=== PATIENT | male | born 1945 | race Caucasian/White ===

== ENCOUNTER → 2016-06-25 | Outpatient (CLI) | payer MEDICARE, BC, OTHER ==
[~2016-06-25] VITALS: Ht 167.6 cm; Wt 81.6 kg
[~2016-06-25] MED LIST: ASPI1TAB PO; ICAPCAP PO; META48.54 PO; NS 1,000 ML IV SCH; PROPOFOL 200 MG/20 ML VIAL As Ordered ONE
--- NOTE | 2016-06-25 12:57 | ROOR ---
Patient Name: Amari Price Procedure Date: 06/25/2016 12:30 PM Date of : 1945 Age: 70 Room: [facility] Gender: Male Note Status: Finalized Procedure: Colonoscopy to Cecum + Cold Snare Polypectomy + Biopsy Polypectomy Indications: High risk colon cancer surveillance: Personal history of colonic polyps, Last colonoscopy: 2012 Providers: Rj Vázquez MD Referring MD: RUBÉN ALCALA JR, MD Requesting Provider: Medicines: Monitored Anesthesia Care Complications: No immediate complications. Procedure: Pre-Anesthesia Assessment: - The heart rate, respiratory rate, oxygen saturations, blood pressure, adequacy of pulmonary ventilation, and response to care were monitored throughout the procedure. The Colonoscope was introduced through the anus and advanced to the cecum, identified by appendiceal orifice and ileocecal valve. The colonoscopy was performed without difficulty. The patient tolerated the procedure well. The quality of the bowel preparation was excellent. Findings: The perianal and digital rectal examinations were normal. Non-bleeding internal hemorrhoids were found during retroflexion. The hemorrhoids were small and Grade I (internal hemorrhoids that do not prolapse). A small polyp was found at 45 cm proximal to the anus. The polyp was sessile. The polyp was removed with a cold snare. Resection and retrieval were complete. A small polyp was found in the mid ascending colon. The polyp was sessile. The polyp was removed with a cold snare. Resection and retrieval were complete. A small polyp was found at 50 cm proximal to the anus. The polyp was sessile. The polyp was removed with a cold biopsy forceps. Resection and retrieval were complete. The exam was otherwise without abnormality on direct and retroflexion views. Impression: - Non-bleeding internal hemorrhoids. - One small polyp at 45 cm proximal to the anus, removed with a cold snare. Resected and retrieved. - One small polyp in the mid ascending colon, removed with a cold snare. Resected and retrieved. - One small polyp at 50 cm proximal to the anus, removed with a cold biopsy forceps. Resected and retrieved. - The examination was otherwise normal on direct and retroflexion views. - The exam was otherwise normal to the cecum. Recommendation: - Patient has a contact number available for emergencies. The signs and symptoms of potential delayed complications were discussed with the patient. Return to normal activities tomorrow. Written discharge instructions were provided to the patient. - Discharge patient to home. - High fiber diet. - Continue present medications. - Await pathology results. - Telephone GI clinic for pathology results in 1 week. - Repeat colonoscopy in 5 years for surveillance based on pathology results. - Return to referring physician. - The findings and recommendations were discussed with the patient's family. Rj Vázquez MD Rj Vázquez MD 06/25/2016 12:57:19 PM This report has been signed electronically. Number of Addenda: 0 Note Initiated On: 06/25/2016 12:30 PM Estimated Blood Loss: Estimated blood loss: none.
[2016-06-25 13:15] VITALS: BP 123/72
== END | disposition home or self-care (01) ==
LOC: M OPP 11:53
PROVIDERS: ATTEND Internal Medicine Gastroenterology
DX: Z12.11 Encounter for screening for malignant neoplasm of colon (principal); D12.5 Benign neoplasm of sigmoid colon; D12.2 Benign neoplasm of ascending colon; K64.0 First degree hemorrhoids; Z86.010 Personal history of colon polyps; R73.09 Other abnormal glucose; R06.83 Snoring; Z85.46 Personal history of malignant neoplasm of prostate; Z92.3 Personal history of irradiation; F17.220 Nicotine dependence, chewing tobacco, uncomplicated; Z79.82 Long term (current) use of aspirin; Z79.899 Other long term (current) drug therapy; Z80.8 Family history of malignant neoplasm of other organs or systems

== ENCOUNTER → 2017-07-31 | Outpatient (REF) | payer MEDICARE, OTHER ==
[2017-07-31 13:38] LABS: TESTOSTERONE 472 NG/DL (241-827)
== END ==
LOC: M LAB REF 12:22
DX: C61 Malignant neoplasm of prostate (principal)
CPT/HCPCS: 84403

== ENCOUNTER → 2019-09-28 | Outpatient (CLI) | payer MEDICARE, BC, OTHER ==
[~2019-09-28] MED LIST changes: -ASPI1TAB PO; +ASPI81TA26 PO; -NS 1,000 ML IV SCH; -PROPOFOL 200 MG/20 ML VIAL As Ordered ONE
== END ==
LOC: M LABSMTC 09:39
PROVIDERS: ATTEND Orthopaedic Surgery Hand Surgery
DX: Z03.818 Encounter for observation for suspected exposure to other biological agents ruled out (principal); Z11.59 Encounter for screening for other viral diseases

== ENCOUNTER → 2019-10-01 | Outpatient (REF) | payer MEDICARE, OTHER | LOC: M LAB REF 16:53 | PROVIDERS: ATTEND Orthopaedic Surgery Hand Surgery | DX: D36.7 Benign neoplasm of other specified sites (principal) ==

== ENCOUNTER → 2020-06-01 | Outpatient (CLI) | payer MEDICARE, OTHER ==
--- NOTE | 2020-06-01 10:20 | REP ---
INDICATION: STRAIN COMPARISON: None. TECHNIQUE: AP, lateral, bilateral oblique, and coned-down views of the lumbar spine. FINDINGS: Alignment and lordosis maintained. Vertebral bodies are intact and there is no evidence for acute fracture/compression injury or acute subluxation. Generalized age-related changes include minimal endplate sclerosis along with facet arthropathy and disc space narrowing primarily involving L4-5 and L5-S1 and to a lesser extent L3-4. IMPRESSION: Mild generalized age-related spondylosis. <Electronically signed by Mo Matias > 06/01/20 [id number]
== END ==
LOC: M WUC 09:50
PROVIDERS: ATTEND Physician Assistant
DX: M47.819 Spondylosis without myelopathy or radiculopathy, site unspecified (principal)

== ENCOUNTER → 2020-08-03 | Outpatient (CLI) | payer MEDICARE, BC, OTHER ==
--- NOTE | 2020-08-04 08:24 | REP ---
INDICATION: SPINAL STENOSIS, DD L REGION. COMPARISON: None. TECHNIQUE: Sagittal T1, T2, STIR, axial T1 and T2 weighted images obtained. Post contrast T1 images obtained. FINDINGS: There is vmqn-ki-nnmupmss multilevel degenerative disc disease with loss of disc height and disc desiccation seen diffusely throughout the lumbar spine. Vertebral heights are overall preserved. There is a mild anterolisthesis of L3 over L4. On the sagittal T2 weighted images, there is a global disc bulge that narrows the central canal at the L3-4 level. Conus ends normally at L 1 level. On the review of axial images, At L1-2 is a global disc bulge and a broad-based left paracentral disc protrusion with qjuv-qm-rqdzqxcj canal stenosis and no significant canal stenosis. At L2-3 global disc bulge without significant canal or foraminal narrowing At L3-4 global disc bulge with ligamentum flavum infolding with moderate canal stenosis and btwm-oq-xnfsbuym bilateral foraminal narrowing, appears greater on the left. At L4-5 global disc bulge with qftg-ao-zoqqglom canal stenosis and tfiv-dt-gwnqhpbe bilateral foraminal narrowing slightly greater on the right. At L5-S1 mild canal narrowing and mild bilateral foraminal narrowing. To Following contrast, no definite abnormal enhancement. IMPRESSION: 1. Ttlh-wa-kgdeibhb multilevel degenerative disc disease with slight anterolisthesis of L3 over L4. 2. At L3-4 listhesis and disc bulge contribute to moderate canal stenosis. 3. Multilevel foraminal narrowing, hbaz-sx-ulrfuqtd as described. <Electronically signed by Jama Ivan > 08/04/20 [id number]
== END ==
LOC: M PLARAD 14:49
PROVIDERS: ATTEND Physician Assistant
DX: M48.061 Spinal stenosis, lumbar region without neurogenic claudication (principal); M51.36 Other intervertebral disc degeneration, lumbar region; M51.26 Other intervertebral disc displacement, lumbar region

== ENCOUNTER → 2020-08-31 | Outpatient (CLI) | payer MEDICARE, BC, OTHER ==
[~2020-08-31] MED LIST changes: +CALCCAP4 PO; +D31000TA2 PO; +METH4TAB8; +PRESCAP PO; +ROSU20TA5; +[UNRECOGNIZED DRUG - CODE] PO
== END ==
LOC: M LABSMTC 11:49
PROVIDERS: ATTEND Anesthesiology
DX: Z01.812 Encounter for preprocedural laboratory examination (principal); Z20.822 Contact with and (suspected) exposure to COVID-19

== ENCOUNTER 2020-09-05 11:59 | Day surgery (SDC) | payer MEDICARE, BC, OTHER ==
[~2020-09-05] VITALS: Ht 170.2 cm; Wt 81.2 kg
[2020-09-05] MEDS ORDERED: propofoL 200 MG/20 ML VIAL As Ordered ONE ×2 (12:47→12:53)
[2020-09-05] MEDS ORDERED: NS 1,000 ML IV ONE (13:00)
--- NOTE | 2020-09-05 13:05 | ROOR ---
Patient Name: Amari Price Procedure Date: 09/05/2020 12:44 PM Date of : 1945 Age: 75 Room: [facility] Gender: Male Note Status: Finalized Procedure: Total Colonoscopy to Cecum + ileoscopy + Bx Indications: High risk colon cancer surveillance: Personal history of colonic polyps, Last colonoscopy: 2016 Providers: Rj Vázquez MD Referring MD: RUBÉN ALCALA JR, MD Requesting Provider: Medicines: Monitored Anesthesia Care Complications: No immediate complications. Procedure: Pre-Anesthesia Assessment: - The heart rate, respiratory rate, oxygen saturations, blood pressure, adequacy of pulmonary ventilation, and response to care were monitored throughout the procedure. The Colonoscope was introduced through the anus and advanced to the cecum, identified by appendiceal orifice and ileocecal valve. The colonoscopy was performed without difficulty. The patient tolerated the procedure well. The quality of the bowel preparation was excellent. Findings: The perianal and digital rectal examinations were normal. Non-bleeding internal hemorrhoids were found during retroflexion. The hemorrhoids were small and Grade I (internal hemorrhoids that do not prolapse). Scattered small-mouthed diverticula were found in the recto-sigmoid colon, sigmoid colon and descending colon. The terminal ileum appeared normal. A small polyp was found in the transverse colon. The polyp was sessile. The polyp was removed with a jumbo cold forceps. Resection and retrieval were complete. The exam was otherwise without abnormality on direct and retroflexion views. Impression: - Non-bleeding internal hemorrhoids. - Diverticulosis in the recto-sigmoid colon, in the sigmoid colon and in the descending colon. - The examined portion of the ileum was normal. - One small polyp in the transverse colon, removed with a jumbo cold forceps. Resected and retrieved. - The examination was otherwise normal on direct and retroflexion views. - The exam was otherwise normal to the cecum. Recommendation: - Patient has a contact number available for emergencies. The signs and symptoms of potential delayed complications were discussed with the patient. Return to normal activities tomorrow. Written discharge instructions were provided to the patient. - High fiber diet. - Discharge patient to home. - Continue present medications. - Await pathology results. - Telephone GI clinic for pathology results in 1 week. - Repeat colonoscopy is not recommended due to current age (66 years or older) for surveillance. - Return to referring physician. - The findings and recommendations were discussed with the patient's family. Procedure Code(s): --- Professional --- 33144, Colonoscopy, flexible; with biopsy, single or multiple Diagnosis Code(s): --- Professional --- Z86.010, Personal history of colonic polyps K64.0, First degree hemorrhoids K63.5, Polyp of colon K57.30, Diverticulosis of large intestine without perforation or abscess without bleeding CPT copyright 2019 [employer]. All rights reserved. The codes documented in this report are preliminary and upon relief mate review may be revised to meet current compliance requirements. Rj Vázquez MD Rj Vázquez MD 09/05/2020 1:04:49 PM Electronically signed by Rj Vázquez MD Number of Addenda: 0 Note Initiated On: 09/05/2020 12:44 PM Estimated Blood Loss: Estimated blood loss: none.
[2020-09-05 13:20] VITALS: BP 133/75
== END 2020-09-05 13:30 | disposition home or self-care (01) ==
LOC: M OPP 11:59
PROVIDERS: ATTEND Internal Medicine Gastroenterology
DX: Z12.11 Encounter for screening for malignant neoplasm of colon (principal); Z86.010 Personal history of colon polyps; D12.3 Benign neoplasm of transverse colon; K57.30 Diverticulosis of large intestine without perforation or abscess without bleeding; K64.0 First degree hemorrhoids; Z79.899 Other long term (current) drug therapy; Z85.46 Personal history of malignant neoplasm of prostate; Z92.3 Personal history of irradiation

== ENCOUNTER → 2021-02-06 | Outpatient (REF) | payer MEDICARE, BC, OTHER | LOC: M LAB REF 16:20 | PROVIDERS: ATTEND Internal Medicine | DX: C61 Malignant neoplasm of prostate (principal) ==

== ENCOUNTER → 2021-05-01 | Outpatient (REF) | payer MEDICARE, BC, OTHER | LOC: M LAB REF 12:48 | PROVIDERS: ATTEND Internal Medicine | DX: C61 Malignant neoplasm of prostate (principal) ==

== ENCOUNTER → 2021-07-31 | Outpatient (REF) | payer MEDICARE, OTHER, BC ==
[~2021-07-31] MED LIST changes: -D31000TA2 PO; +VITA100093 PO
== END ==
LOC: M LAB REF 16:08
PROVIDERS: ATTEND Internal Medicine
DX: C61 Malignant neoplasm of prostate (principal)

== ENCOUNTER → 2021-10-02 | Outpatient (REF) | payer MEDICARE, OTHER, BC | LOC: M LAB REF 16:18 | PROVIDERS: ATTEND Internal Medicine | DX: C61 Malignant neoplasm of prostate (principal) ==

== ENCOUNTER 2021-12-12 10:25 | Emergency (ER) | payer MEDICARE, OTHER, BC ==
[~2021-12-12] VITALS: Ht 165.1 cm; Wt 68.2 kg
[2021-12-12] MEDS ORDERED: METF500T13 (10:35)
[2021-12-12] MEDS ORDERED: FLUO10CA18 (10:35)
[2021-12-12] MEDS ORDERED: GABAPENTIN 100 MG CAP PO ONE (11:50)
[2021-12-12 12:27] LABS: BASO % 0.3 % (0.0-1.0); EOS % 0.1 % (0.0-3.0); HEMATOCRIT 41.2 % (42.0-52.0); HEMOGLOBIN 13.5 g/dl (13.5-17.5); LYMPH # 0.6 10^3/uL (1.5-5.0); LYMPH % 6.4 % (24.0-44.0); MEAN CORPUSCULAR HGB CONC 32.8 g/dl (32.0-36.5); MEAN CORPUSCULAR VOLUME 94.5 fl (80.0-96.0); MONO # 0.4 10^3/uL (0.0-0.8); NEUTROPHILS # 7.6 10^3/uL (1.5-8.5); NEUTROPHILS % 87.9 % (36.0-66.0); PLATELET COUNT, AUTOMATED 273 10^3/uL (150-450); RED BLOOD COUNT 4.36 10^6/uL (4.30-6.10); WHITE BLOOD COUNT 8.6 10^3/uL (4.0-10.0)
[2021-12-12 12:47] LABS: ERYTHROCYTE SEDIMENTATION RATE 5 mm/hr (0-20)
[2021-12-12 13:10] LABS: BLOOD UREA NITROGEN 17 MG/DL (7-18); CALCIUM LEVEL 9.1 MG/DL (8.8-10.2); CARBON DIOXIDE LEVEL 30 MEQ/L (21-32); CHLORIDE LEVEL 105 MEQ/L (98-107); CREATININE FOR GFR 0.83 MG/DL (0.70-1.30); GLOMERULAR FILTRATION RATE > 60.0 (>42); GLUCOSE, FASTING 126 MG/DL (70-100); SODIUM LEVEL 138 MEQ/L (136-145)
[2021-12-12 13:14] LABS: CK-MB VALUE MASS 3.1 NG/ML (<3.6); MB/CK RELATIVE INDEX 1.74 (< OR =4)
[2021-12-12] MEDS ORDERED: KETOROLAC 30 MG/ML 1ML VIAL IV ONE (13:25)
[2021-12-12 14:30] VITALS: BP 130/76
[2021-12-12] MEDS ORDERED: KETO10TAB PO (14:41)
== END 2021-12-12 14:52 | disposition home or self-care (01) ==
LOC: M ED 10:25
DX: R07.89 Other chest pain (principal); F17.200 Nicotine dependence, unspecified, uncomplicated; Z79.899 Other long term (current) drug therapy
CPT/HCPCS: 71045; 73000; 73030; 80048; 82550; 82553; 84484; 85025; 85379; 85652; 86140; 93005; 93041; 94760; 96374; 99285; J1885

== ENCOUNTER → 2022-02-05 | Outpatient (CLI) | payer MEDICARE, BC, OTHER ==
[~2022-02-05] MED LIST changes: +B-12100010 PO; +FLUO10CA18; +KETO10TAB PO; +METF500T13; +VITMTA PO
== END ==
LOC: M LABSMTC 11:12
PROVIDERS: ATTEND Anesthesiology
DX: Z01.812 Encounter for preprocedural laboratory examination (principal); Z20.822 Contact with and (suspected) exposure to COVID-19

== ENCOUNTER 2022-02-07 07:44 | Day surgery (SDC) | payer MEDICARE, BC, OTHER ==
[~2022-02-07] VITALS: Ht 165.1 cm; Wt 74.1 kg
[~2022-02-07 07:44] MED LIST changes: +BSS IRRIG/VANCO(10MG)/TOBRA(5MG)/EPINEPH(1:1000-0.5CC)500ML BAG-ORONLY IR ONE; +CEFUROXIME 1MG/0.1ML INTRACAMERAL INJ As Ordered ONE; +CYCLOPENTOLATE 1% OPHTH SOLN 2 ML BTL OD SCH; +LIDOCAINE 1% SDV 5ML VIAL As Ordered ONE; +LIDOCAINE 3.5 % 1ML OPHTH TOPICAL GEL OU ONE; +MIDAZOLAM INJ 2MG/2ML VIAL (J2250 PER 1MG) As Ordered ONE; +OFLOXACIN 0.3 % (OCUFLOX) OPTH SOL 5ML OD ONE; +PHENYLEPHRINE 2.5% OPHTH SOL 2ML OD SCH; +PHENYLEPHRINE HCL 10 % OPHTH. SOL 5ML OD PRN; +TROPICAMIDE 1% OPHTH SOLN 2ML OD SCH; +fentaNYL 100 MCG/2 ML INJECTION As Ordered ONE
[2022-02-07 10:40] VITALS: BP 134/69
== END 2022-02-07 11:06 | disposition home or self-care (01) ==
LOC: M SDC 07:44
PROVIDERS: ATTEND Ophthalmology
DX: H25.11 Age-related nuclear cataract, right eye (principal); E11.9 Type 2 diabetes mellitus without complications; Z85.46 Personal history of malignant neoplasm of prostate; Z92.3 Personal history of irradiation; Z79.84 Long term (current) use of oral hypoglycemic drugs; Z79.899 Other long term (current) drug therapy; F17.200 Nicotine dependence, unspecified, uncomplicated
CPT/HCPCS: 66984; 92015; J0697; J2250; J3010; V2632

== ENCOUNTER 2022-08-08 08:44 | Day surgery (SDC) | payer MEDICARE, BC, OTHER ==
[~2022-08-08] VITALS: Ht 165.1 cm; Wt 76.6 kg
[~2022-08-08 08:44] MED LIST changes: -CYCLOPENTOLATE 1% OPHTH SOLN 2 ML BTL OD SCH; +CYCLOPENTOLATE 1% OPHTH SOLN 2ML BTL OS SCH; -METF500T13; +METF500T13 PO; -METH4TAB8; +METH4TAB8 PO; -MIDAZOLAM INJ 2MG/2ML VIAL (J2250 PER 1MG) As Ordered ONE; +MIDAZOLAM INJ 2MG/2ML VIAL As Ordered ONE; -OFLOXACIN 0.3 % (OCUFLOX) OPTH SOL 5ML OD ONE; +OFLOXACIN 0.3 % (OCUFLOX) OPTH SOL 5ML OS ONE; +OMEG10002 PO; +PHENYLEPHRINE 10% OPHTH SOL 5ML OS PRN; -PHENYLEPHRINE 2.5% OPHTH SOL 2ML OD SCH; +PHENYLEPHRINE 2.5% OPHTH SOL 2ML OS SCH; -PHENYLEPHRINE HCL 10 % OPHTH. SOL 5ML OD PRN; +ROSU10TA6 PO; +SYNT25TA PO; +TROPICAMIDE 1% OPHTH SOLN 15ML OS SCH; -TROPICAMIDE 1% OPHTH SOLN 2ML OD SCH
[2022-08-08 09:52] VITALS: BP 128/70
== END 2022-08-08 10:16 | disposition home or self-care (01) ==
LOC: M SDC 08:44
PROVIDERS: ATTEND Ophthalmology
DX: H25.12 Age-related nuclear cataract, left eye (principal); E11.9 Type 2 diabetes mellitus without complications; E03.9 Hypothyroidism, unspecified; Z79.52 Long term (current) use of systemic steroids; Z79.84 Long term (current) use of oral hypoglycemic drugs; Z95.3 Presence of xenogenic heart valve; Z85.46 Personal history of malignant neoplasm of prostate; Z79.899 Other long term (current) drug therapy
CPT/HCPCS: 66984; 92015; J0697; J2250; J3010; V2632

== ENCOUNTER 2023-02-06 11:20 | Day surgery (SDC) | payer MEDICARE, BC, OTHER ==
[~2023-02-06] VITALS: Ht 167.6 cm; Wt 70.6 kg
[~2023-02-06 11:20] MED LIST changes: -BSS IRRIG/VANCO(10MG)/TOBRA(5MG)/EPINEPH(1:1000-0.5CC)500ML BAG-ORONLY IR ONE; -CEFUROXIME 1MG/0.1ML INTRACAMERAL INJ As Ordered ONE; +CIPROFLOXACIN 0.3% OPHTH OINTMENT As Ordered ONE; -CYCLOPENTOLATE 1% OPHTH SOLN 2ML BTL OS SCH; +LEVO50TA5 PO; -LIDOCAINE 1% SDV 5ML VIAL As Ordered ONE; +LIDOCAINE 2% W/EPINEPHRINE 20ML VIAL **PRES FREE As Ordered ONE; -MIDAZOLAM INJ 2MG/2ML VIAL As Ordered ONE; -OFLOXACIN 0.3 % (OCUFLOX) OPTH SOL 5ML OS ONE; -PHENYLEPHRINE 10% OPHTH SOL 5ML OS PRN; -PHENYLEPHRINE 2.5% OPHTH SOL 2ML OS SCH; +POVIDONE-IODINE 5% OPHTH PREP SOL 30ML As Ordered ONE; -ROSU20TA5; +ROSU20TA61; -TROPICAMIDE 1% OPHTH SOLN 15ML OS SCH; -fentaNYL 100 MCG/2 ML INJECTION As Ordered ONE
[2023-02-06] MEDS ORDERED: MIDAZOLAM INJ 2MG/2ML VIAL As Ordered ONE (12:35)
[2023-02-06] MEDS ORDERED: fentaNYL 100 MCG/2 ML INJECTION As Ordered ONE ×3 (12:35→15:06)
[2023-02-06 15:42] VITALS: BP 142/73; TEMP 97.6; O2SAT 97
== END 2023-02-06 16:21 | disposition home or self-care (01) ==
LOC: M SDC 11:20
PROVIDERS: ATTEND Ophthalmology
DX: H02.403 Unspecified ptosis of bilateral eyelids (principal); E11.9 Type 2 diabetes mellitus without complications; E03.9 Hypothyroidism, unspecified; E78.00 Pure hypercholesterolemia, unspecified; Z79.899 Other long term (current) drug therapy; Z79.890 Hormone replacement therapy; Z79.84 Long term (current) use of oral hypoglycemic drugs; Z87.891 Personal history of nicotine dependence; Z85.46 Personal history of malignant neoplasm of prostate; Z92.3 Personal history of irradiation
CPT/HCPCS: 67904; 88302; J2250; J3010

== ENCOUNTER → 2023-04-26 | Outpatient (REF) | payer MEDICARE, BC, OTHER ==
[~2023-04-26] MED LIST changes: -CIPROFLOXACIN 0.3% OPHTH OINTMENT As Ordered ONE; -LIDOCAINE 2% W/EPINEPHRINE 20ML VIAL **PRES FREE As Ordered ONE; -LIDOCAINE 3.5 % 1ML OPHTH TOPICAL GEL OU ONE; -POVIDONE-IODINE 5% OPHTH PREP SOL 30ML As Ordered ONE
== END ==
LOC: M LAB REF 12:36
PROVIDERS: ATTEND Physician Assistant Medical
DX: S00.86XA Insect bite (nonvenomous) of other part of head, initial encounter (principal); X58.XXXA Exposure to other specified factors, initial encounter; Y92.9 Unspecified place or not applicable; Y93.9 Activity, unspecified; Y99.9 Unspecified external cause status

== ENCOUNTER → 2025-01-11 | Outpatient (CLI) | payer MEDICARE, BC ==
[~2025-01-11] MED LIST changes: +FLUO-290; -FLUO10CA18; -ROSU10TA6 PO; +ROSU10TA61 PO; -ROSU20TA61; +ROSU20TA86
== END ==
LOC: M RAD 12:15
PROVIDERS: ATTEND Nurse Practitioner Family
DX: I70.203 Unspecified atherosclerosis of native arteries of extremities, bilateral legs (principal)